=== PATIENT | male | born 1985 | race Two or more races ===

== ENCOUNTER 2017-06-10 17:52 | Emergency (ER) | payer OTHER ==
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
[2017-06-10 19:27] VITALS: BP 136/100
== END 2017-06-10 19:27 | disposition home or self-care (01) ==
DX: S46.811A Strain of other muscles, fascia and tendons at shoulder and upper arm level, right arm, initial encounter (principal); F17.200 Nicotine dependence, unspecified, uncomplicated; V49.40XA Driver injured in collision with unspecified motor vehicles in traffic accident, initial encounter; Y92.410 Unspecified street and highway as the place of occurrence of the external cause; Y99.8 Other external cause status; Y93.89 Activity, other specified
CPT/HCPCS: A4565